=== PATIENT | female | born 1970 | race Caucasian/White ===

== ENCOUNTER 2019-08-15 11:09 | Outpatient (CLI) | payer OTHER ==
--- NOTE | 2019-08-15 11:41 | RAD ---
PA AND LATERAL CHEST: HISTORY: Chronic cough. FINDINGS: The heart size is normal. The lungs are well expanded without lobar areas of consolidation, pneumotho races or pleural effusions. No acute osseous abnormalities are seen. IMPRESSION: No radiographic evidence of acute cardiopulmonary process. POS: [facility]
== END 2019-08-15 11:10 | disposition home or self-care (01) ==
LOC: BICRAD 11:09
PROVIDERS: ATTEND Internal Medicine
DX: K21.9 Gastro-esophageal reflux disease without esophagitis (principal); K22.10 Ulcer of esophagus without bleeding; R05 Cough
CPT/HCPCS: 71046

== ENCOUNTER 2022-05-29 11:29 | Emergency (ER) | payer OTHER ==
[2022-05-29] MEDS ORDERED: Ketorolac Tromethamine 30 MG/ML VIAL ONE (12:30)
[2022-05-29] MEDS ORDERED: Lidocaine 1% PF 5 ML VIAL ONE ×2 (12:30→13:09)
[2022-05-29] MEDS ORDERED: Bupivacaine 0.25% 10 ML VIAL ONE (13:29)
== END 2022-05-29 16:11 | disposition home or self-care (01) ==
LOC: ERS 11:29
DX: S63.102A Unspecified subluxation of left thumb, initial encounter (principal)
CPT/HCPCS: 96372; J1885; S0020